=== PATIENT | male | born 1950 | race Caucasian/White ===

== ENCOUNTER 2022-04-13 19:43 | Inpatient (IN) | payer BC, MEDICARE ==
[2022-04-13 20:36] LABS: Prothrombin Time 13.6 sec (12.0-14.7)
[2022-04-13 20:38] LABS: PTT 112.9 sec (22.9-36.1)
[2022-04-13 21:29] LABS: CKMB 11.9 ng/mL (0-6.6)
[2022-04-13] MEDS ORDERED: Zolpidem Tartrate 5 MG TAB PO PRN (21:48)
[2022-04-13] MEDS ORDERED: Zolpidem Tartrate 5 MG TAB PO SCH (22:00)
[2022-04-14] MEDS: Zolpidem Tartrate 5 MG TAB PO PRN ×2 (00:22→20:20)
[2022-04-14 00:44] LABS: Troponin I 0.818 ng/mL (< 0.028)
[2022-04-14] MEDS ORDERED: Magnesium 2 GM/50 ML BAG (IN WATER) ONE (02:16)
[2022-04-14 04:04] LABS: #Eosinphils 0.4 thou/uL (0.0-0.7); #Lymphocytes 1.5 thou/uL (1.20-3.40); #Monocytes 0.8 thou/uL (0.11-0.59); #Neutrophils 4.2 thou/uL (1.40-6.50); %Basophils 0.6 % (0.0-1.0); %Eosinophils 5.2 % (0.0-10.0); %Lymphocytes 21.8 % (21.0-51.0); %Monocytes 10.9 % (0.0-10.0); %Neutrophils 61.4 % (42.0-75.0); Hemoglobin 14.8 g/dL (14.0-18.0); Mean Corpuscular HGB CONC 34.2 g/dL (32.0-36.0); Mean Corpuscular Hemoglobin 29.7 pg (27.0-31.0); Mean Corpuscular Volume 86.7 fl (78.0-98.0); Platelet Count 164 10x3/uL (130-400); RBC Distribution Width 12.4 % (11.5-14.5); White Blood Cell (WBC) Count 6.8 10x3/uL (4.8-10.8)
[2022-04-14 04:23] LABS: Anion Gap 12 mmol/L (10-20); BUN (Urea Nitrogen) 14 mg/dL (8.4-25.7); Calc. Creatinine Clearance 83 mL/min (70-130); Carbon Dioxide 22 mmol/L (23-31); Chloride 106 mmol/L (98-107); Estimated GFR 75; Glucose 160 mg/dL (80-115); Sodium 136 mmol/L (136-145)
[2022-04-14] MEDS ORDERED: Losartan 25 MG TAB PO SCH (09:00)
[2022-04-14] MEDS ORDERED: Electrolyte Replacement Protocol 1 EACH FS SCH (10:45)
[2022-04-14 11:31] VITALS: BMI 28.5
[2022-04-14] MEDS ORDERED: Aspirin 325 mg Enteric Coated Tablet PO SCH (15:30)
[2022-04-14] MEDS ORDERED: Furosemide 20 MG/2 ML VIAL SLOW IVP SCH (15:45)
[2022-04-14] MEDS ORDERED: Potassium Chloride 20 MEQ TAB PO SCH (15:45)
[2022-04-14] MEDS ORDERED: Nitroglycerin 2% Ointment 1 INCH/1 GM Packet TOP SCH (16:00)
[2022-04-14] MEDS: Rosuvastatin 20 MG TAB PO SCH (20:19)
[2022-04-14] MEDS: Nitroglycerin 2% Ointment 1 INCH/1 GM Packet TOP SCH (20:20)
[2022-04-14] MEDS: Losartan 25 MG TAB PO SCH (20:20)
[2022-04-15 04:57] LABS: #Eosinphils 0.3 thou/uL (0.0-0.7); #Lymphocytes 1.3 thou/uL (1.20-3.40); #Monocytes 0.9 thou/uL (0.11-0.59); #Neutrophils 6.5 thou/uL (1.40-6.50); %Basophils 0.5 % (0.0-1.0); %Eosinophils 3.6 % (0.0-10.0); %Lymphocytes 14.2 % (21.0-51.0); %Neutrophils 71.6 % (42.0-75.0); Hemoglobin 16.3 g/dL (14.0-18.0); Mean Corpuscular HGB CONC 33.4 g/dL (32.0-36.0); Mean Corpuscular Hemoglobin 29.5 pg (27.0-31.0); Mean Corpuscular Volume 88.4 fl (78.0-98.0); Mean Platelet Volume 10.4 fL (7.4-10.4); Platelet Count 174 10x3/uL (130-400); RBC Distribution Width 12.7 % (11.5-14.5); Red Blood Cell (RBC) Count 5.52 mill/uL (4.70-6.10); White Blood Cell (WBC) Count 9.1 10x3/uL (4.8-10.8)
[2022-04-15] MEDS: Losartan 25 MG TAB PO SCH ×2 (05:28→20:50)
[2022-04-15] MEDS: Aspirin 81 mg Enteric Coated Tablet PO SCH (05:28)
[2022-04-15] MEDS: Zolpidem Tartrate 5 MG TAB PO PRN ×2 (05:29→20:50)
[2022-04-15 05:34] LABS: Anion Gap 13 mmol/L (10-20); BUN (Urea Nitrogen) 13 mg/dL (8.4-25.7); Calc. Creatinine Clearance 92 mL/min (70-130); Calcium 9.2 mg/dL (7.8-10.44); Carbon Dioxide 20 mmol/L (23-31); Cardiac Risk 5.4 (Less than 4.5); Chloride 107 mmol/L (98-107); Cholesterol 228 mg/dl (< 200 Desired); Estimated GFR 88; Glucose 114 mg/dL (80-115); HDL Cholesterol 42 mg/dL (>60 Neg Risk); LDL Cholesterol, Calculated 161 mg/dL; Magnesium 1.9 mg/dL (1.6-2.6); Potassium 4.3 mmol/L (3.5-5.1); Sodium 136 mmol/L (136-145); Triglycerides 125 mg/dL (Less than 150)
[2022-04-15] MEDS: Nitroglycerin 2% Ointment 1 INCH/1 GM Packet TOP SCH (05:37)
[2022-04-15] MEDS ORDERED: Sodium Chloride 0.9% 1,000 ML IV SCH (07:00)
[2022-04-15] MEDS ORDERED: Communication Order-Pharmacy FS SCH (07:00)
[2022-04-15] MEDS ORDERED: Magnesium 2 GM/50 ML(in water) 2 GM in Premix Bag 1 BAG IVPB SCH (08:00)
[2022-04-15] MEDS ORDERED: Lidocaine 1% (PF) 30 ML VIAL ONE (08:41)
[2022-04-15] MEDS ORDERED: Nitroglycerin 100MG/250ML BOT 250 ML ONE (08:59)
[2022-04-15] MEDS ORDERED: Heparin 10,000 UNITS/ 10 ML VIAL ONE (08:59)
[2022-04-15] MEDS ORDERED: Midazolam HCl 2 mg/2 ml Vial ONE (09:00)
[2022-04-15] MEDS ORDERED: FENTANYL 50 MCG/ML 1 ML VIAL ONE (09:00)
[2022-04-15] MEDS ORDERED: Metoprolol Tartrate 5 MG/5 ML VIAL ONE (10:07)
[2022-04-15] MEDS ORDERED: Sodium Chloride 0.9% 200 ML IV PRN (11:12)
[2022-04-15] MEDS ORDERED: Iopamidol 370 76% 100 ML VIAL ONE (12:42)
[2022-04-15] MEDS: Sodium Chloride 0.9% 1,000 ML IV SCH ×2 (14:45→18:13)
[2022-04-15] MEDS: Rosuvastatin 20 MG TAB PO SCH (20:50)
[2022-04-16] MEDS: Sodium Chloride 0.9% 1,000 ML IV SCH (04:14)
[2022-04-16 04:56] LABS: #Eosinphils 0.3 thou/uL (0.0-0.7); #Lymphocytes 0.9 thou/uL (1.20-3.40); #Monocytes 0.6 thou/uL (0.11-0.59); #Neutrophils 3.4 thou/uL (1.40-6.50); %Basophils 0.5 % (0.0-1.0); %Eosinophils 6.6 % (0.0-10.0); %Lymphocytes 17.3 % (21.0-51.0); %Monocytes 11.6 % (0.0-10.0); Hemoglobin 14.5 g/dL (14.0-18.0); Mean Corpuscular HGB CONC 33.6 g/dL (32.0-36.0); Mean Corpuscular Hemoglobin 29.5 pg (27.0-31.0); Mean Corpuscular Volume 87.7 fl (78.0-98.0); Platelet Count 144 10x3/uL (130-400); RBC Distribution Width 12.4 % (11.5-14.5); Red Blood Cell (RBC) Count 4.92 mill/uL (4.70-6.10); White Blood Cell (WBC) Count 5.3 10x3/uL (4.8-10.8)
[2022-04-16 05:15] LABS: Anion Gap 9 mmol/L (10-20); BUN (Urea Nitrogen) 10 mg/dL (8.4-25.7); Calc. Creatinine Clearance 93 mL/min (70-130); Calcium 8.5 mg/dL (7.8-10.44); Carbon Dioxide 23 mmol/L (23-31); Chloride 109 mmol/L (98-107); Estimated GFR 89; Glucose 116 mg/dL (80-115); Potassium 3.9 mmol/L (3.5-5.1); Sodium 137 mmol/L (136-145)
[2022-04-16] MEDS: Aspirin 81 mg Enteric Coated Tablet PO SCH (10:05)
[2022-04-16 11:54] VITALS: BP 145/66; TEMP 98.5
== END 2022-04-16 11:54 | disposition home or self-care (01) | DRG 280 ==
LOC: ERS 19:43 → ERHOLD 21:48 → 2SW 04-14 11:04 → OBSVTOIN 04-15 10:25
PROVIDERS: ADMIT Family Medicine; ATTEND Internal Medicine
PROC: 4A023N7 Measurement of Cardiac Sampling and Pressure, Left Heart, Percutaneous Approach (ICD-10-PCS; principal; 2022-04-15)
PROC: B2151ZZ Fluoroscopy of Left Heart using Low Osmolar Contrast (ICD-10-PCS; 2022-04-15)
DX: I42.1 Obstructive hypertrophic cardiomyopathy (principal); U07.1 COVID-19; I21.A1 Myocardial infarction type 2; I10 Essential (primary) hypertension; I49.3 Ventricular premature depolarization; I34.0 Nonrheumatic mitral (valve) insufficiency; K21.9 Gastro-esophageal reflux disease without esophagitis; G47.00 Insomnia, unspecified; E78.5 Hyperlipidemia, unspecified; Z79.899 Other long term (current) drug therapy
CPT/HCPCS: 36415; 80048; 80061; 82553; 83735; 83880; 85025; 93005; 93306; 93460; 96372; 96374; 96375; 99152; 99153; C1769; G0378; J1644; J1650; J1940; J2001; J2250; J3010; J3475; J7050; Q9967; U0003; U0005

== ENCOUNTER 2022-10-17 18:00 | Outpatient (CLI) | payer BC | END 2022-10-17 18:01 | disposition home or self-care (01) | LOC: SLEEPLAB 18:00 | PROVIDERS: ATTEND Internal Medicine | DX: G47.33 Obstructive sleep apnea (adult) (pediatric) (principal); R53.83 Other fatigue; R06.83 Snoring; I25.10 Atherosclerotic heart disease of native coronary artery without angina pectoris; I10 Essential (primary) hypertension; E78.00 Pure hypercholesterolemia, unspecified | CPT/HCPCS: 95800 ==

== ENCOUNTER 2022-12-17 13:50 | Emergency (ER) | payer OTHER, BC ==
[2022-12-17] MEDS ORDERED: Cyclobenzaprine 10 MG TAB ONE (15:26)
== END 2022-12-17 16:10 | disposition home or self-care (01) ==
LOC: ERS 13:50
DX: M25.512 Pain in left shoulder (principal); K21.9 Gastro-esophageal reflux disease without esophagitis; I10 Essential (primary) hypertension; V89.2XXA Person injured in unspecified motor-vehicle accident, traffic, initial encounter

== ENCOUNTER 2022-12-30 13:35 | Emergency (ER) | payer BC ==
[2022-12-30] MEDS ORDERED: Ketorolac Tromethamine 30 MG/ML VIAL ONE (14:53)
== END 2022-12-30 16:35 | disposition home or self-care (01) ==
LOC: ERS 13:35
DX: M62.830 Muscle spasm of back (principal); K21.9 Gastro-esophageal reflux disease without esophagitis; I10 Essential (primary) hypertension; Z79.899 Other long term (current) drug therapy
CPT/HCPCS: 70450; 96372; J1885